=== PATIENT | male | born 1955 | race African-American/Black ===

== ENCOUNTER 2016-08-13 15:39 | Emergency (ER) | payer OTHER, BC ==
[~2016-08-13] VITALS: Ht 180.3 cm; Wt 107.6 kg
[~2016-08-13 15:39] MED LIST: COUMADIN,JANTOVE1 MG PO; ENDOCET 5-3251 EACH PO; FEOSOL325 MG PO; HTN MEDICATION; Hydrodiuril,Oretic,E PO; Norvasc PO; SENOKOT S,PE1 TABLET PO; TRIBENZOR 40-51 EAC1 PO; TRIBENZOR PO; Tylenol Regular Stre PO; Ultram ER 100 mg Tab PO; ZESTRIL,PRINIVI10 M1 PO; oxyCODONE PO
[2016-08-13 16:13] VITALS: BP 154/90
[2016-08-13 17:21] LABS: HEMATOCRIT 46.3 % (38.0-50.0); MCH 29.9 PG (29.0-34.0); MCHC 33.9 G/DL (30.0-36.0); MCV 88.2 FL (86-99); MEAN PLAT.VOLUME 10.3 uM^3 (9.0-12.4); PLATELET COUNT 200 K/uL (156-360); RBC DIS.WIDTH-CV 12.6 % (11.8-14.6); RBC DIS.WIDTH-SD 40.3 % (39-53); RED BLOOD COUNT 5.25 M/uL (4.00-5.50); WHITE BLOOD COUNT 4.5 K/uL (4.1-10.2)
[2016-08-13 17:34] LABS: CHLORIDE 104 mEq/L (99-109); POTASSIUM 4.2 mEq/L (3.7-5.4); SODIUM 140 mEq/L (136-147)
[2016-08-13 17:36] LABS: GLUCOSE 99 mg/dL (70-99)
[2016-08-13 17:37] LABS: ANION GAP 9 MEQ/L (2-14)
[2016-08-13 17:40] LABS: GFR ESTIMATE (CALCULATED) > 59 mL/min/
[2016-08-13 17:41] LABS: UREA NITROGEN (BUN) 21 mg/dL (9-23)
[2016-08-13 17:45] LABS: TROP-I INTERPRETATION NEGATIVE; TROPONIN-I < 0.01 ng/mL (0.0-0.30)
== END 2016-08-13 16:48 | disposition left against medical advice (07) ==
LOC: EME 15:39
DX: R07.9 Chest pain, unspecified (principal); Z53.21 Procedure and treatment not carried out due to patient leaving prior to being seen by health care provider
CPT/HCPCS: 71020; 80048; 84484; 85027; 93005